=== PATIENT | female | born 1965 | race Caucasian/White ===

== ENCOUNTER 2017-04-30 01:23 | Emergency (ER) | payer OTHER ==
--- NOTE | 2017-04-30 03:15 | PDOC ---
History of Present Illness - General Chief Complaint: Pain, Acute Stated Complaint: ABD PAIN Time Seen by Provider: 04/30/17 03:03 - History of Present Illness Initial Comments: 04/30/17 03:10 52 y.o. female who presents with acute onset of epigastric non-radiating 10/10 cramping abdominal pain with non-bloody diarrhea. Patient states the pain started around 4 p.m. this afternoon while she was sitting at home and was associated with a single episode of non-bloody emesis. Patient denies any dysuria/hematuria and states her LMP was 5 years previous. Patient denies any fevers/chills, chest pain, shortness of breath. NKDA Surgical: abdominoplasty Past History - Past Medical History Allergies/Adverse Reactions: Allergies Allergy/AdvReac Type Severity Reaction Status Date / Time No Known Allergies Allergy Verified 04/30/17 02:46 Home Medications: Ambulatory Orders Buspirone HCl [Buspar -] 10 mg PO TID 09/23/15 Citalopram Hydrobromide [Citalopram HBr] 40 mg PO DAILY 09/23/15 Famotidine 20 mg PO DAILY 09/23/15 Zolpidem Tartrate 10 mg PO HS 09/23/15 Tramadol HCl [Ultram] 50 mg PO TID #21 tablet MDD 3 09/24/15 Polyethylene Glycol 3350 [Miralax (For Daily Use) -] 17 gm PO DAILY #1 bottle Polyethylene Glycol 3350 [Miralax (For Daily Use) -] 17 gm PO DAILY #1 bottle Psychiatric Problems: Yes (Depression) - Surgical History Abdominal Surgery: Yes (Tummy tuck) - Suicide/Smoking/Psychosocial Hx Smoking History: Never smoked Have you smoked in the past 12 months: No Number of Cigarettes Smoked Daily: 0 Information on smoking cessation initiated: No Hx Alcohol Use: No Drug/Substance Use Hx: No Substance Use Type: None Review of Systems - Review of Systems Constitutional: No: Chills, Fever Respiratory: No: Shortness of Breath Cardiac (ROS): No: Chest Pain ABD/GI: Yes: Vomiting, Abdominal cramping. No: Constipated, Diarrhea, Nausea : No: Burning, Dysuria *Physical Exam - Vital Signs Last Vital Signs Temp Pulse Resp BP Pulse Ox 98.3 F 72 20 127/90 99 04/30/17 01:36 04/30/17 01:36 04/30/17 01:36 04/30/17 01:36 04/30/17 01:36 - Physical Exam General Appearance: Yes: Nourished, Appropriately Dressed Neck: positive: Trachea midline, Supple Respiratory/Chest: positive: Lungs Clear Cardiovascular: positive: S1, S2 Gastrointestinal/Abdominal: positive: Normal Bowel Sounds, Tenderness. negative : Distended, Guarding, Hernia, Mass Musculoskeletal: negative: CVA Tenderness (R), CVA Tenderness (L) Extremity: positive: Normal Inspection. negative: Normal Capillary Refill Integumentary: positive: Normal Color, Dry, Warm Neurologic: positive: Fully Oriented, Alert ED Treatment Course - LABORATORY CBC & Chemistry Diagram: 04/30/17 03:34 04/30/17 03:34 Medical Decision Making - Medical Decision Making 04/30/17 03:17 Patient is a 52 y.o. female who presents with epigastric pain and non-bloody diarrhea. Abdomen is mildly tender on PE. Clinical suspicion for viral gastritis vs. biliary tract disease (including cholecystitis) vs. early onset appendicitis vs. diverticular disease. Will obtain CBC, CMP, Lipase + GI cocktail and IV NS and Reassess. Labs wnL. Patient symptomatically improved with GI cocktail. Signs and symptoms likely 2/2 to viral gastroenteritis Will discharge home with return precautions and instruction to f/u with PMD. At time of discharge patient ambulatory, tolerating PO intake and improved. I discussed the physical exam findings, test results and final medical impressions and diagnoses with the patient. I answered all of the patient's questions. The patient was satisfied with the care received and affirmed understanding of the discharge plan and treatment plan. The patient will return to the Emergency Department with any new, persistent or worsening symptoms. *DC/Admit/Observation/Transfer Diagnosis at time of Disposition: Abdominal pain, Viral gastroenteritis - Discharge Dispostion Disposition: HOME Condition at time of disposition: Good Admit: No - Prescriptions Prescriptions: Polyethylene Glycol 3350 [Miralax (For Daily Use) -] 17 gm PO DAILY #1 bottle Polyethylene Glycol 3350 [Miralax (For Daily Use) -] 17 gm PO DAILY #1 bottle - Referrals - Patient Instructions Printed Discharge Instructions: DI for Abdominal Pain-Adult Additional Instructions: Please return to the Emergency Department for any new/worsening/concerning symptoms. - Post Discharge Activity
[2017-04-30 03:19] VITALS: BP 127/90; PULSE 72; TEMP 98.3
[2017-04-30] MEDS ORDERED: SODIUM CHLORIDE 0.9% 1000 ML INFUS.BAG IV ONE (03:22)
[2017-04-30 03:47] LABS: BASO % 0.8 % (0-2.0); EOS % 1.8 % (0-4.5); HEMOGLOBIN 13.8 GM/dL (10.7-15.3); LYMPH % 49.2 % (8-40); MCH 29.3 pg (25.7-33.7); MCHC 32.8 g/dl (32.0-36.0); MEAN CELL VOLUME 89.1 fl (80-96); MEAN PLT VOLUME 8.9 fl (7.5-11.1); NEUT % 42.2 % (42.8-82.8); PLATELET COUNT 251 K/MM3 (134-434); RBC 4.71 M/mm3 (3.60-5.2); WHITE BLOOD COUNT 4.9 K/mm3 (4.0-10.0)
[2017-04-30] MEDS ORDERED: FAMOTIDINE IV 20 MG/12 ML VIAL IVPUSH ONE (03:49)
[2017-04-30] MEDS ORDERED: MAG HYDROX/AL HYDROX/SIMETH 30 ML UNIT-DOSE CUP PO ONE (03:49)
[2017-04-30 04:18] LABS: INR 1.06 (0.82-1.09)
[2017-04-30 04:19] LABS: ALBUMIN 4.2 g/dl (3.4-5.0); ALK PHOS 93 U/L (45-117); ANION GAP 9 (8-16); BILIRUBIN,TOTAL 0.4 mg/dL (0.2-1.0); BLOOD UREA NITROGEN 10 mg/dL (7-18); CHLORIDE 97 mmol/L (98-107); CO2 30 mmol/L (21-32); GLUCOSE,RANDOM 95 mg/dL (74-106); SGPT/ALT 44 U/L (12-78); SODIUM 136 mmol/L (136-145); TOT PROT 8.5 g/dl (6.4-8.2)
[2017-04-30] MEDS ORDERED: MAG HYDROX/AL HYDROX/SIMETH 30 ML UNIT-DOSE CUP ONE (04:19)
[2017-04-30] MEDS ORDERED: FAMOTIDINE 20 MG/50 ML IVPB 20 MG/50 ML MG IVPB ONE (04:20)
[2017-04-30 04:24] LABS: LIPASE 209 U/L (73-393)
--- NOTE | 2017-04-30 05:46 | PDOC ---
Attending Attestation - Resident Resident Name: Irena Carmona - ED Attending Attestation I have performed the following: I have examined & evaluated the patient, The case was reviewed & discussed with the resident, I agree w/resident's findings & plan - HPI HPI: 04/30/17 05:43 Pt comes with abdominal pain and vomiting x 1. Pt has a viral illness. - Physicial Exam PE: 04/30/17 05:44 Normal Exam; after treatment in the ER, pt has minimal gassy pain in her abdomen. Pt has consipation. - Medical Decision Making 04/30/17 05:44 Pt has normal labs and normal exam. She is feeling better in the ER. Pt will be sent home with PMD followup, Pt has the same viral gastroenteritis that everyone in the ER and in this community has. Pt appears well at this time and she is afebrile and she will be discharged.
== END 2017-04-30 05:49 | disposition home or self-care (01) ==
LOC: JER 01:23
PROC: 3E033GC Introduction of Other Therapeutic Substance into Peripheral Vein, Percutaneous Approach (ICD-10-PCS; principal; 2017-04-30)
DX: R10.13 Epigastric pain (principal)
CPT/HCPCS: 36415; 80053; 83690; 85025; 85610; 96374; 99282-25

== ENCOUNTER 2017-12-07 22:35 | Emergency (ER) | payer OTHER ==
[2017-12-07 22:43] VITALS: TEMP 98.9; BMI 25.5
[2017-12-07] MEDS ORDERED: ACETAMINOPHEN 1000 MG/100 ML VIAL (NON FORMULARY) IVPB ONE ×2 (23:26→23:34)
[2017-12-07] MEDS ORDERED: SODIUM CHLORIDE 0.9% 500 ML INFUS.BAG IV ONE (23:26)
[2017-12-07] MEDS ORDERED: ONDANSETRON 4 MG/2 ML VIAL IVPUSH ONE (23:26)
--- NOTE | 2017-12-07 23:30 | PDOC ---
Attending Attestation - HPI HPI: 12/08/17 00:04 The patient is a 52F with a history of migraines and HTN (not on therapy) who presents to the ED with nausea and multiple episodes of vomiting for the past three days after eating seafood. Patient reports she had seafood three days ago and has been experiencing symptoms since. Patient has been unable to tolerate PO intake since the onset of her symptoms. Patient's significant other had the same meal but denies any symptoms. Patient's last bowel movement was at 2PM this afternoon, which was normal with no straining. The patient denies chest pain, shortness of breath, headache, and dizziness. Denies fever, chills, diarrhea, and constipation. Denies dysuria, frequency, urgency, and hematuria. Allergies: NKA Past surgical history: Social history: No reported alcohol, drug, or cigarette use. Documentation prepared by Roshni Snowden, acting as medical legal investigator for Lucy Hong DO. - Physicial Exam PE: 12/08/17 00:07 ADULT PHYSICAL EXAM Constitutional: Awake, alert, oriented. No acute distress. Head: Normocephalic. Atraumatic Eyes: PERRL. EOMI. Conjunctivae are not pale. ENT: Mucous membranes are moist and intact. Posterior pharynx without exudates or erythema. Uvula midline. Neck: Supple. Full ROM. No lymphadenopathy. Cardiovascular: Regular rate. Regular rhythm. S1, S2 regular. Distal pulses are 2+ and symmetric. Pulmonary/Chest: No evidence of respiratory distress. Clear to auscultation bilaterally No wheezing, rales or rhonchi. Abdominal: (+) Mild epigastric tenderness. (+) Old scar. Soft and non- distended. No rebound, guarding or rigidity. No organomegaly. No palpable masses. Good bowel sounds. Back: No CVA tenderness. Musculoskeletal: No edema. No cyanosis. No clubbing. Full range of motion in all extremities. Nocalf tenderness. Radial/pedal pulses are intact and 2+ bilaterally Skin: Skin is warm and dry. No petechiae. No purpura. Neurological: Alert and oriented to person, place, and time. Cranial nerves II -XII are grossly intact. Normal speech. Strength is grossly symmetric. No sensory deficits. Psychiatric: Good eye contact. Normal interaction, affect and behavior. <Isi,Roshni - Last Filed: 12/08/17 00:16> - Resident Resident Name: Armand Stearns - ED Attending Attestation I have performed the following: I have examined & evaluated the patient, The case was reviewed & discussed with the resident, I agree w/resident's findings & plan, Exceptions are as noted - Medical Decision Making 12/07/17 23:30 I, Dr. Lucy Hong, DO, attest that this document has been prepared under my direction and personally reviewed by me in its entirety. I further attest, that it accurately reflects all work, treatment, procedures and medical decision -making performed by me. 12/08/17 00:00 a/p: 52yo female with n/v x 3 days after eating seafood -nonbloody/nonbilious -no diarrhea -last bm today at 2p without straining -unable to tolerate PO intake -will check labs and bedside RUQ ultrasound -suspect gastritis vs enteritis vs pud vs biliary colic -pt is nontoxic in appearance 12/08/17 00:15 bedside ultrasound - negative for pericholecystic fluid or sonographic garcía. no gb wall thickening - could not eval the neck to eval for stone 12/08/17 00:59 official ultrasound negative for acute francis or stones labs stable pt feels better and stable for d/c to home <Lucy Hong - Last Filed: 12/08/17 00:59>
[2017-12-07] MEDS ORDERED: RANITIDINE HCL 150 MG TABLET (FP) PO ONE (23:33)
[2017-12-07] MEDS ORDERED: METOCLOPRAMIDE HCL INJECTION 10 MG/2 ML VIAL IVPUSH ONE (23:34)
[2017-12-07] MEDS ORDERED: METOCLOPRAMIDE HCL INJECTION 10 MG/2 ML VIAL ONE (23:40)
[2017-12-07] MEDS ORDERED: ACETAMINOPHEN INJECTION 100 ML IVPB ONE (23:40)
[2017-12-07 23:49] LABS: URINE APPEARANCE CLOUDY; URINE BILIRUBIN NEGATIVE (<2.0 mg/dL); URINE GLUCOSE (UA) NEGATIVE (NEGATIVE); URINE KETONE NEGATIVE (NEGATIVE); URINE LEUK ESTERASE NEGATIVE (NEGATIVE); URINE NITRITE NEGATIVE (NEGATIVE); URINE UROBILINOGEN NEGATIVE mg/dL (0.2-1.0)
[2017-12-07] MEDS ORDERED: RANITIDINE HCL 150 MG TABLET (FP) ONE (23:49)
[2017-12-07 23:53] LABS: URINE COLOR YELLOW; URINE PROTEIN 1+ (NEGATIVE)
[2017-12-07 23:56] LABS: EPI CELLS RARE /HPF (FEW); HEMATOCRIT 38.5 % (32.4-45.2); HEMOGLOBIN 13.3 GM/dL (10.7-15.3); MCH 29.9 pg (25.7-33.7); MCHC 34.5 g/dl (32.0-36.0); MEAN CELL VOLUME 86.7 fl (80-96); MEAN PLT VOLUME 9.1 fl (7.5-11.1); PLATELET COUNT 239 K/MM3 (134-434); RBC 4.45 M/mm3 (3.60-5.2); RDW 13.2 % (11.6-15.6); URINE HYALINE CAST 4 /lpf; URINE MUCUS RARE; WHITE BLOOD COUNT 4.7 K/mm3 (4.0-10.0)
--- NOTE | 2017-12-07 23:59 | PDOC ---
History of Present Illness - General Chief Complaint: Nausea/Vomiting Stated Complaint: NAUSEA/VOMITING Time Seen by Provider: 12/07/17 23:05 - History of Present Illness Initial Comments: The patient is a 52F with a history of migraines and HTN (not on therapy) who presents w/ 3d of N/V and associated URRUTIA that does not feel similar to her migraines that she has had in the past. She reports eating a meal with shrimp on Monday and shortly thereafter her symptoms began. She reports denies having tried taking anything for the pain. She has since had poor PO tolerance. She denies fevers/chills, vision changes, chest pain, SOB, D/C, or changes in sensation. 12/07/17 23:57 Past History - Past Medical History Allergies/Adverse Reactions: Allergies Allergy/AdvReac Type Severity Reaction Status Date / Time No Known Allergies Allergy Verified 12/07/17 22:43 Home Medications: Ambulatory Orders Buspirone HCl [Buspar -] 10 mg PO TID 09/23/15 Citalopram Hydrobromide [Citalopram HBr] 40 mg PO DAILY 09/23/15 Famotidine 20 mg PO DAILY 09/23/15 Zolpidem Tartrate 10 mg PO HS 09/23/15 Tramadol HCl [Ultram] 50 mg PO TID #21 tablet MDD 3 09/24/15 Polyethylene Glycol 3350 [Miralax (For Daily Use) -] 17 gm PO DAILY #1 bottle Polyethylene Glycol 3350 [Miralax (For Daily Use) -] 17 gm PO DAILY #1 bottle Ranitidine [Zantac -] 150 mg PO DAILY #14 tablet 12/08/17 COPD: No HTN: Yes Psychiatric Problems: Yes (Depression) - Surgical History Abdominal Surgery: Yes ([place]) - Suicide/Smoking/Psychosocial Hx Smoking History: Never smoked Have you smoked in the past 12 months: No Number of Cigarettes Smoked Daily: 0 Information on smoking cessation initiated: No Hx Alcohol Use: No Drug/Substance Use Hx: No Substance Use Type: None Review of Systems - Review of Systems Able to Perform ROS?: Yes Comments:: GENERAL/CONSTITUTIONAL: No fever or chills. No weakness HEAD, EYES, EARS, NOSE AND THROAT: No change in vision. No ear pain or discharge. No sore throat CARDIOVASCULAR: No chest pain or shortness of breath RESPIRATORY: No cough, wheezing, or hemoptysis GASTROINTESTINAL: per HPI GENITOURINARY: No dysuria, frequency, or change in urination MUSCULOSKELETAL: No joint or muscle swelling or pain. No neck or back pain SKIN: No rash NEUROLOGIC: No headache, vertigo, loss of consciousness, or change in strength/ sensation ENDOCRINE: No increased thirst. No abnormal weight change ALLERGIC/IMMUNOLOGIC: No hives or skin allergy 12/08/17 05:10 *Physical Exam - Vital Signs Last Vital Signs Temp Pulse Resp BP Pulse Ox 98.9 F 82 17 114/81 100 12/07/17 22:41 12/07/17 22:41 12/07/17 22:41 12/07/17 22:41 12/07/17 22:41 - Physical Exam Comments: GENERAL: Awake, alert, and fully oriented, in no acute distress HEAD: No signs of trauma, normocephalic, atraumatic EYES: PERRL, EOMI, sclera anicteric, conjunctiva clear ENT: Hearing grossly normal, nares patent, oropharynx clear without exudates. Moist mucosa NECK: Normal ROM, supple, no lymphadenopathy LUNGS: No distress, speaks full sentences, clear to auscultation bilaterally HEART:Regular rate and rhythm, normal S1 and S2, no murmurs appreciated, peripheral pulses normal and equal bilaterally ABDOMEN: Soft, RUQ/epigastric TTP, normoactive bowel sounds. No guarding, no rebound EXTREMITIES : Normal inspection, Normal range of motion, no edema. No clubbing or cyanosis NEUROLOGICAL: Cranial nerves II through XII grossly intact. Normal speech, normal gait, no focal sensorimotor deficits SKIN: Warm, Dry, normal turgor, no rashes or lesions noted 12/08/17 05:11 ED Treatment Course - LABORATORY CBC & Chemistry Diagram: 12/07/17 23:33 12/07/17 23:33 - ADDITIONAL ORDERS Additional order review: Laboratory Results 12/07/17 23:33 Urine Color Yellow Urine Appearance Cloudy Urine pH 8.0 D Ur Specific Rohwer 1.020 Urine Protein 1+ H Urine Glucose (UA) Negative Urine Ketones Negative Urine Blood Negative Urine Nitrite Negative Urine Bilirubin Negative Urine Urobilinogen Negative Ur Leukocyte Esterase Negative Urine WBC (Auto) 12 Urine RBC (Auto) 2 Ur Epithelial Cells Rare Hyaline Casts 4 Urine Mucus Rare 12/07/17 23:33 RBC 4.45 MCV 86.7 MCHC 34.5 RDW 13.2 MPV 9.1 - Medications Given in the ED: ED Medications Discontinued Medications Generic Name Dose Route Start Last Admin Trade Name Arlene PRN Reason Stop Dose Admin Acetaminophen 1,000 mg 12/07/17 23:26 12/07/17 23:48 Ofirmev Injection - IVPB 12/07/17 23:27 Not Given ONCE ONE Acetaminophen 1,000 mg 12/07/17 23:34 12/07/17 23:47 Ofirmev Injection - IVPB 12/07/17 23:35 1,000 mg ONCE ONE Administration Metoclopramide HCl 10 mg 12/07/17 23:34 12/07/17 23:47 Reglan Injection - IVPUSH 12/07/17 23:35 10 mg ONCE ONE Administration Ondansetron HCl 4 mg 12/07/17 23:26 12/07/17 23:48 Zofran Injection IVPUSH 12/07/17 23:27 Not Given ONCE ONE Ranitidine HCl 150 mg 12/07/17 23:33 12/07/17 23:51 Zantac - PO 12/07/17 23:34 150 mg ONCE ONE Administration Sodium Chloride 1,000 ml 12/07/17 23:26 12/07/17 23:47 Normal Saline - IV 12/07/17 23:27 1,000 ml ONCE ONE Administration Medical Decision Making - Medical Decision Making The patient is a 52F with a history of migraines who presents with N/V, RUQ abdominal pain, and URRUTIA for 3d ED Course CMP, CBC, UA/Upreg RUQ US Reglan 10mg IV once Ofirmev 1g IV once 1L NS RUQ US negative for pathology Labs wnl No evidence of UTI Patient symptoms improved Rx for Zantac Plan for DC w/ PCP f/u Pt was asked to return to the ED immediately for any new or concerning or if they worsen. Pt was in agreement, endorsed understanding, and questions were answered. Dispo: Home 12/08/17 05:17 *DC/Admit/Observation/Transfer Diagnosis at time of Disposition: Abdominal pain Qualifiers: Abdominal location: epigastric Qualified Code(s): R10.13 - Epigastric pain Nausea & vomiting Qualifiers: Vomiting type: unspecified Vomiting Intractability: non-intractable Qualified Code(s): R11.2 - Nausea with vomiting, unspecified - Discharge Dispostion Disposition: HOME Condition at time of disposition: Improved Decision to Admit order: No - Prescriptions Prescriptions: Ranitidine [Zantac -] 150 mg PO DAILY #14 tablet - Referrals Referrals: [facility] [place] [Provider Group] - Patient Instructions Printed Discharge Instructions: DI for Nausea -- Adult, DI for Vomiting -- Adult Additional Instructions: You were seen today in the Emergency Department for nausea, vomiting, and headache. Please refer to the handouts provided at discharge. Please fill your prescription that was sent to the pharmacy you specified and take as directed. Please follow up with your primary care provider. Return to the Emergency Department if you develop fevers, worsening symptoms, or new concerning symptoms. - Post Discharge Activity
[2017-12-08 00:09] LABS: ALBUMIN 4.2 g/dl (3.4-5.0); ALK PHOS 85 U/L (45-117); ANION GAP 7 MMOL/L (8-16); BILIRUBIN,TOTAL 0.2 mg/dL (0.2-1.0); BLOOD UREA NITROGEN 11 mg/dL (7-18); CALCIUM 9.1 mg/dL (8.5-10.1); CHLORIDE 102 mmol/L (98-107); CO2 31 mmol/L (21-32); CREATININE 1.1 mg/dL (0.55-1.3); GLUCOSE,RANDOM 106 mg/dL (74-106); POTASSIUM 3.5 mmol/L (3.5-5.1); SGOT/AST 27 U/L (15-37); SGPT/ALT 47 U/L (13-61); SODIUM 140 mmol/L (136-145); TOT PROT 7.7 g/dl (6.4-8.2)
[2017-12-08 00:29] LABS: HCG,QUALITATIVE URINE NEGATIVE
[2017-12-08 01:26] VITALS: BP 110/72; PULSE 76
== END 2017-12-08 01:25 | disposition home or self-care (01) ==
LOC: JER 22:35
PROC: 3E033GC Introduction of Other Therapeutic Substance into Peripheral Vein, Percutaneous Approach (ICD-10-PCS; principal; 2017-12-07)
PROC: 3E033NZ Introduction of Analgesics, Hypnotics, Sedatives into Peripheral Vein, Percutaneous Approach (ICD-10-PCS; 2017-12-07)
DX: R10.13 Epigastric pain (principal); R11.2 Nausea with vomiting, unspecified; I10 Essential (primary) hypertension; G43.909 Migraine, unspecified, not intractable, without status migrainosus
CPT/HCPCS: 36415; 76705-TC; 80053; 81003; 81015; 83690; 84703; 85027; 99284-25; J0131

== ENCOUNTER 2018-01-23 12:47 | Emergency (ER) | payer OTHER ==
[2018-01-23 13:25] VITALS: BP 143/99; PULSE 87; TEMP 98.3; BMI 26.6
--- NOTE | 2018-01-23 13:40 | PDOC ---
History of Present Illness - General Chief Complaint: Eye Problem Stated Complaint: EYE PROBLEM Time Seen by Provider: 01/23/18 13:32 - History of Present Illness Initial Comments: This evaluation done with a scribe used for translation. 52-year-old female without comorbidities presents for evaluation of bilateral eye irritation 2 months she was placed on an oral antihistamine and ocular eyedrop without relief she complains of bilateral eye itching and irritation along with redness and tearing 01/23/18 13:39 Past History - Past Medical History Allergies/Adverse Reactions: Allergies Allergy/AdvReac Type Severity Reaction Status Date / Time No Known Allergies Allergy Verified 01/23/18 13:17 Home Medications: Ambulatory Orders Loratadine 10 mg PO ASDIR 01/23/18 Olopatadine HCl [Pataday] 1 drop OU DAILY #1 bottle 01/23/18 Polymyxin B Sulf/Trimethoprim [Polymyxin B-Tmp Eye Drops] 10 ml OP ASDIR Topiramate 50 mg PO ASDIR 01/23/18 COPD: No HTN: Yes Psychiatric Problems: Yes (Depression) - Surgical History Abdominal Surgery: Yes (Tummy tuck) - Suicide/Smoking/Psychosocial Hx Smoking History: Never smoked Have you smoked in the past 12 months: No Number of Cigarettes Smoked Daily: 0 Hx Alcohol Use: No Drug/Substance Use Hx: No Substance Use Type: None Review of Systems - Review of Systems HEENTM: Yes: See HPI, Tearing All Other Systems: Reviewed and Negative *Physical Exam - Vital Signs Last Vital Signs Temp Pulse Resp BP Pulse Ox 98.3 F 87 18 143/99 99 01/23/18 13:20 01/23/18 13:20 01/23/18 13:20 01/23/18 13:20 01/23/18 13:20 - Physical Exam Comments: 01/23/18 13:40 HEAD: NC/AT EYES: Conjuntiva injected, PERRL, EOMI MS: Full ROM in all joints without edema NEUROLOGIC: No gross sensory or motor deficits, NVID SKIN: Normal color and temperature no lesions or rashes Medical Decision Making - Medical Decision Making 01/23/18 13:41 This is an ALLERGIC conjunctivitis, I will give and antihistamine eyedrop and have her follow-up with ophthalmology *DC/Admit/Observation/Transfer Diagnosis at time of Disposition: Allergic conjunctivitis - Discharge Dispostion Disposition: HOME Condition at time of disposition: Stable Decision to Admit order: No - Referrals Referrals: Leo Lin MD [Primary Care Provider] - Kamala Whitney MD [Staff Physician] - Idris Cleveland MD [Staff Physician] - Shun Solares [Non Staff, Medical] - Allison Sears MD [Non Staff, Medical] - Aidan Murray MD [Staff Physician] - Idris Borrego MD [Non Staff, Medical] - Perez Motley MD, MD [Non Staff, Medical] - Mehran Hopkins MD [Non Staff, Medical] - - Patient Instructions Printed Discharge Instructions: Conjunctivitis, DI for Conjunctivitis Additional Instructions: actual a la laura de emergencias si los sntomas empeoran o no se resuelven. Le he dado olivier lista de las lesiones del mdico ocular local hannah los prximos 1 o 2 dunbar. Por favor, use las gotas para los ojos kristina se indica. Caer en cada jp olivier vez al da current to the emergency room should symptoms worsen or go unresolved. I've given you a list of local eye doctor's lesions follow-up with within the next 1- 2 days. Please use the eyedrops as directed. Drop in each eye once a day Print Language: BULGARIAN - Post Discharge Activity
== END 2018-01-23 13:45 | disposition home or self-care (01) ==
LOC: JER 12:47
DX: H10.13 Acute atopic conjunctivitis, bilateral (principal)
CPT/HCPCS: 99281-25

== ENCOUNTER 2018-02-13 06:41 | Emergency (ER) | payer OTHER ==
[2018-02-13 06:46] VITALS: TEMP 97.8; BMI 25.7
--- NOTE | 2018-02-13 08:12 | PDOC ---
History of Present Illness - General Chief Complaint: Psychiatric Stated Complaint: S.O.B. Time Seen by Provider: 02/13/18 07:28 History Source: Patient Exam Limitations: No Limitations - History of Present Illness Initial Comments: 02/13/18 08:53 52-year-old female with history of hypertension, hyperlipidemia, migraines, anxiety and depression presenting with episode of shortness of breath to 4 hours prior to presentation. She states she was sleeping at the time and then her eye started to blink, associated with breathing rapidly, palpitations, chest tightness, headache, dizziness and muscle tightness in her thighs. episode lasted briefly, since has improved. admits to drinking caffeine daily, including this morning. she took anxiolytic drug and antidepressant (unknown names) with some relief. +stressors including the recent of her grandchild ~earlier this week, where daughter had with some complications. no prolonged immobilization or ocp use. no h/o dVT or PE. no cardiac or CAD/IA history. Past History - Past Medical History Allergies/Adverse Reactions: Allergies Allergy/AdvReac Type Severity Reaction Status Date / Time No Known Allergies Allergy Verified 02/13/18 06:46 Home Medications: Ambulatory Orders Loratadine 10 mg PO ASDIR 01/23/18 Olopatadine HCl [Pataday] 1 drop OU DAILY #1 bottle 01/23/18 Polymyxin B Sulf/Trimethoprim [Polymyxin B-Tmp Eye Drops] 10 ml OP ASDIR Topiramate 50 mg PO ASDIR 01/23/18 COPD: No HTN: Yes Psychiatric Problems: Yes (Depression) - Surgical History Abdominal Surgery: Yes ([place]) - Suicide/Smoking/Psychosocial Hx Smoking History: Never smoked Have you smoked in the past 12 months: No Number of Cigarettes Smoked Daily: 0 Information on smoking cessation initiated: No Hx Alcohol Use: No Drug/Substance Use Hx: No Substance Use Type: None Review of Systems - Review of Systems Able to Perform ROS?: Yes Comments:: 02/13/18 09:04 GENERAL/CONSTITUTIONAL: No fever or chills. No weakness. no sweats. HEAD, EYES, EARS, NOSE AND THROAT: No change in vision or hearing. No ear pain or discharge. No sore throat or mouth pain. No difficulty swallowing. No congestion. +headache and dizziness. CARDIOVASCULAR: No syncope or edema. +chest pain, palpitations RESPIRATORY: No cough, wheezing, or hemoptysis. +SOB GASTROINTESTINAL No nausea/vomiting. No diarrhea MUSCULOSKELETAL: No joint or muscle swelling or pain. No neck or back pain. SKIN: No rash or changes in skin color or lesions. NEUROLOGIC: +headache and dizziness. No vertigo, loss of consciousness, or change in strength/sensation. No gait instability. Psychiatric: +anxious HEMATOLOGIC/LYMPHATIC: No anemia, easy bruising/bleeding, or history of blood clots. ALLERGIC/IMMUNOLOGIC: No allergies All other systems reviewed and negative, or as documented in HPI. *Physical Exam - Vital Signs Last Vital Signs Temp Pulse Resp BP Pulse Ox 97.8 F 89 24 H 134/92 100 02/13/18 06:41 02/13/18 06:41 02/13/18 06:41 02/13/18 06:41 02/13/18 06:41 - Physical Exam Comments: 02/13/18 09:05 General: +anxious, tremulous. awake and alert, NAD. HEENT: NCAT, PERRL, EOMI, clear conjunctiva, anicteric, moist mucus membranes, clear oropharynx, no oral lesions.. Neck: neck supple, FROM Resp: CTAB, normal and even respirations, no respiratory distress CVS: RRR, no murmurs, 2+ peripheral pulses throughout, no peripheral edema Abdomen: soft, NTND, no peritoneal signs. Back: nontender, normal inspection and ROM MSK: no edema, CASTELAN x4, ROM intact. No clubbing or cyanosis. normal bulk and tone. Extrem: no calf tenderness Neuro: alert, oriented appropriately; no focal neurologic deficits Psych: +anxious, tremulous Skin: warm and well perfused, cap refill <2 sec, normal color ED Treatment Course - LABORATORY CBC & Chemistry Diagram: 02/13/18 09:00 02/13/18 09:00 Medical Decision Making - Medical Decision Making 02/13/18 09:05 52 YOF with h/o anxiety, depression, HTN, HLD, presenting with likely anxiety reaction, with body tremors. muscle tightness, dizziness, URRUTIA, SOB and palpitations. no CP. DDx SOB: anemia, electrolyte/metabolic derangements. anxiety reaction. ACS, cardiopulmonary Considered but clinically doubt based on HPI and PE: pulmonary infection, PE, ACS, CHF, pulmonary edema. Vital signs reviewed, wnl. mild tachypnea, off O2, with normal sats, comfortable otherwise. VS repeated, normal Prior notes reviewed, including admissions, discharges and consultations. laboratory results and imaging reviewed, basic labs and lytes wnl, chem normal. troponin_negative, EKG normal sinus rhythm, no interval abnormalities, narrow QRS, ST and T wave segments and morphology normal. Nonspecific T wave abnormalities ED course: given anxiolysis. ECG nonischemic, and no active cp or sob, so unlikely cardiac or pulmonary. improved clinically, ambulatory, eager for discharge. avoid triggers and precipitants. Discharge: Pt to be discharged in stable condition. Patient and family made aware of impression and plan, return precautions discussed (including but not limited to worsening pain or symptoms), fevers, or signs of infection, chest pain, respiratory distress, inability to tolerate oral intake, dehydration, syncope, or neurologic changes). Follow up with PMD as recommended, follow up information provided, take medications as instructed for duration of time. continue with supportive care, avoid triggers and precipitants. All questions answered to patient's satisfaction and expressed understanding and comfort with this. 02/13/18 10:00 *DC/Admit/Observation/Transfer Diagnosis at time of Disposition: Shortness of breath, Anxiety in acute stress reaction - Discharge Dispostion Disposition: HOME Condition at time of disposition: Good Decision to Admit order: No - Referrals Referrals: Leo Lin MD [Primary Care Provider] - - Patient Instructions Printed Discharge Instructions: DI for Anxiety -- Adult, DI for Shortness of Breath Additional Instructions: you were evaluated in the department for your shortness of breath your blood work and enzymes were negative, ECG was also normal, so unlikely arrhythmia or heart attack stay hydrated, rest adequately, minimize stress follow up with your primary doctor please resume your usual medications return if worsening chest pain, shortness of breath, fainting, pain, infection or worsening condition. Usted fue evaluado en el departamento por gallegos falta de aliento. gallegos anlisis de anita y las enzimas fueron negativos, el ECG tambin fue normal , por lo que es poco probable que haya arritmia o ataque cardaco Mantente hidratado, descansa adecuadamente, minimiza el estrs. seguimiento con gallegos mdico de cabecera por favor reanude afshin medicamentos habituales regresar si empeora el dolor de pecho, falta de aliento, desmayos, dolor, infeccin o empeoramiento de la condicin. Print Language: SERBIAN - Post Discharge Activity Forms/Work/School Notes: Back to Work
[2018-02-13] MEDS ORDERED: ALPRAZolam 0.25 MG TABLET PO ONE (08:13)
[2018-02-13] MEDS ORDERED: ALPRAZolam 0.25 MG TABLET ONE (09:02)
[2018-02-13 09:15] LABS: BASO % 0.6 % (0-2.0); EOS % 1.1 % (0-4.5); HEMATOCRIT 36.5 % (32.4-45.2); HEMOGLOBIN 12.5 GM/dL (10.7-15.3); LYMPH % 39.1 % (8-40); MCH 30.4 pg (25.7-33.7); MCHC 34.4 g/dl (32.0-36.0); MEAN CELL VOLUME 88.5 fl (80-96); MEAN PLT VOLUME 8.8 fl (7.5-11.1); MONO % 9.5 % (3.8-10.2); NEUT % 49.7 % (42.8-82.8); PLATELET COUNT 251 K/MM3 (134-434); RBC 4.12 M/mm3 (3.60-5.2); RDW 13.7 % (11.6-15.6); WHITE BLOOD COUNT 3.6 K/mm3 (4.0-10.0)
[2018-02-13 09:57] LABS: ALBUMIN 3.9 g/dl (3.4-5.0); ALK PHOS 103 U/L (45-117); ANION GAP 8 MMOL/L (8-16); BILIRUBIN,TOTAL 0.3 mg/dL (0.2-1); BLOOD UREA NITROGEN 15 mg/dL (7-18); CALCIUM 9.1 mg/dL (8.5-10.1); CHLORIDE 105 mmol/L (98-107); CO2 29 mmol/L (21-32); CREATININE 0.9 mg/dL (0.55-1.3); GLUCOSE,RANDOM 96 mg/dL (74-106); POTASSIUM 4.2 mmol/L (3.5-5.1); SGOT/AST 23 U/L (15-37); SGPT/ALT 43 U/L (13-61); SODIUM 142 mmol/L (136-145); TOT PROT 7.4 g/dl (6.4-8.2)
[2018-02-13 10:04] VITALS: BP 127/76; PULSE 78
--- NOTE | 2018-02-13 11:35 | EKG ---
Test Reason : Blood Pressure : / mmHG Vent. Rate : 071 BPM Atrial Rate : 071 BPM P-R Int : 134 ms QRS Dur : 076 ms QT Int : 410 ms P-R-T Axes : 053 010 041 degrees QTc Int : 445 ms NORMAL SINUS RHYTHM NORMAL ECG NO PREVIOUS ECGS AVAILABLE Confirmed by Evin Montoya MD ([id number]) on 02/13/2018 11:34:36 AM Referred By: Confirmed By:Evin Montoya MD
== END 2018-02-13 10:03 | disposition home or self-care (01) ==
LOC: JER 06:41
DX: F41.1 Generalized anxiety disorder (principal); F43.0 Acute stress reaction; I10 Essential (primary) hypertension; E78.5 Hyperlipidemia, unspecified; F32.9 Major depressive disorder, single episode, unspecified; Z86.69 Personal history of other diseases of the nervous system and sense organs
CPT/HCPCS: 36415; 80053; 84484; 85025; 93005; 93010; 99283-25

== ENCOUNTER → 2018-10-20 | Emergency (ER) | payer OTHER | LOC: JER 21:29 ==

== ENCOUNTER 2020-04-21 09:56 | Emergency (ER) | payer OTHER ==
[2020-04-21 10:12] VITALS: BP 150/89; PULSE 98; TEMP 97.9; BMI 25.8
[2020-04-21] MEDS ORDERED: KETOROLAC TROMETHAMINE 60 MG/2 ML VIAL IM ONE (11:02)
[2020-04-21] MEDS ORDERED: diazePAM 2 MG TABLET PO ONE (11:03)
[2020-04-21] MEDS ORDERED: LIDOCAINE 5% TOPICAL PATCH TP ONE (11:03)
[2020-04-21] MEDS ORDERED: LIDOCAINE 5% TOPICAL PATCH ONE (11:12)
[2020-04-21] MEDS ORDERED: diazePAM 2 MG TABLET ONE (11:13)
[2020-04-21] MEDS ORDERED: KETOROLAC TROMETHAMINE 30 MG/1 ML VIAL ONE (11:13)
== END 2020-04-21 13:14 | disposition home or self-care (01) ==
LOC: JERFT 09:56
PROC: 3E0233Z Introduction of Anti-inflammatory into Muscle, Percutaneous Approach (ICD-10-PCS; principal; 2020-04-21)
DX: M54.2 Cervicalgia (principal)
CPT/HCPCS: 72040-TC; 99284-25

== ENCOUNTER 2020-08-18 19:24 | Emergency (ER) | payer OTHER ==
[2020-08-18 19:32] VITALS: BP 121/81; PULSE 97; TEMP 98.3; BMI 30.7
[2020-08-18 22:04] LABS: BASO % 0.6 % (0-2.0); EOS % 3.1 % (0-4.5); HEMATOCRIT 35.1 % (32.4-45.2); LYMPH % 41.9 % (8-40); MCH 29.9 pg (25.7-33.7); MCHC 34.2 g/dl (32.0-36.0); MEAN CELL VOLUME 87.4 fl (80-96); MEAN PLT VOLUME 8.9 fl (7.5-11.1); MONO % 8.4 % (3.8-10.2); PLATELET COUNT 231 K/MM3 (134-434); RBC 4.02 M/mm3 (3.60-5.2); RDW 13.2 % (11.6-15.6); WHITE BLOOD COUNT 5.5 K/mm3 (4.0-10.0)
[2020-08-18 22:21] LABS: CHLORIDE 104 mmol/L (98-107); SODIUM 142 mmol/L (136-145)
[2020-08-18 22:23] LABS: CALCIUM 8.9 mg/dL (8.5-10.1); GLUCOSE,RANDOM 108 mg/dL (74-106)
[2020-08-18 22:24] LABS: ALBUMIN 3.8 g/dl (3.4-5.0); ANION GAP 7 MMOL/L (8-16); BLOOD UREA NITROGEN 14.3 mg/dL (7-18); CO2 31 mmol/L (21-32)
[2020-08-18 22:26] LABS: CREATININE 1.1 mg/dL (0.55-1.3)
[2020-08-18 22:27] LABS: SGOT/AST 34 U/L (15-37); SGPT/ALT 55 U/L (13-61)
[2020-08-18 22:28] LABS: BILIRUBIN,TOTAL 0.2 mg/dL (0.2-1); TOT PROT 6.8 g/dl (6.4-8.2)
[2020-08-18 22:31] LABS: ALK PHOS 124 U/L (45-117)
[2020-08-18 22:32] LABS: N-TERMINAL BNP 22.4 pg/ml (5-125)
== END 2020-08-19 00:14 | disposition home or self-care (01) ==
LOC: JER 19:24
DX: R06.02 Shortness of breath (principal)
CPT/HCPCS: 36415; 71045-TC-FY; 80053; 83880; 84484; 85025; 93005; 93010; 93970-TC; 99285-25; C9803; U0003; U0005

== ENCOUNTER 2022-03-04 12:15 | Emergency (ER) | payer OTHER ==
[2022-03-04 12:24] VITALS: BP 147/87; PULSE 79; RESP 18; TEMP 97.8; BMI 30.4
[2022-03-04] MEDS ORDERED: DEXAMETHASONE SOD PHOSPHATE 10 MG/1 ML VIAL IM ONE (14:09)
[2022-03-04] MEDS ORDERED: ALBUTEROL SO4 2.5/IPRATROPIUM 0.5 INH SOL 3 ML VIAL.NEB. NEB ONE (14:44)
[2022-03-04] MEDS: ALBUTEROL SO4 2.5/IPRATROPIUM 0.5 INH SOL 3 ML VIAL.NEB. NEB SCH ×2 (14:49→14:50)
== END 2022-03-04 19:00 | disposition home or self-care (01) ==
LOC: JER 12:15 → JERFT 12:15 → JER 19:00
PROC: 3E023GC Introduction of Other Therapeutic Substance into Muscle, Percutaneous Approach (ICD-10-PCS; principal; 2022-03-04)
PROC: 3E0F7GC Introduction of Other Therapeutic Substance into Respiratory Tract, Via Natural or Artificial Opening (ICD-10-PCS; 2022-03-04)
DX: J20.5 Acute bronchitis due to respiratory syncytial virus (principal); J45.901 Unspecified asthma with (acute) exacerbation
CPT/HCPCS: 0241U-QW; 71046-TC-FY; 99284-25; J1100

== ENCOUNTER 2023-02-22 22:20 | Emergency (ER) | payer OTHER ==
[2023-02-22 22:28] VITALS: BP 146/79; PULSE 84; RESP 20; TEMP 98.2; BMI 29.3
[2023-02-22] MEDS ORDERED: FLUORESCEIN NA 1 EA STRIP OD ONE (23:13)
[2023-02-22] MEDS ORDERED: ERYTHROMYCIN 0.5% OPHTHALMIC OINTMENT 3.5 GM TUBE ONE (23:13)
[2023-02-22] MEDS ORDERED: TETRACAINE 0.5% OPHTH SOLN 2 ML BOTTLE OD ONE (23:14)
[2023-02-22] MEDS ORDERED: ERYTHROMYCIN 0.5% OPHTHALMIC OINTMENT 3.5 GM TUBE OD STA (23:30)
[2023-02-23] MEDS ORDERED: ERYTHROMYCIN 0.5% OPHTHALMIC OINTMENT 3.5 GM TUBE OD ONE (23:13)
== END 2023-02-22 23:25 | disposition home or self-care (01) ==
LOC: JERFT 22:20
DX: H10.31 Unspecified acute conjunctivitis, right eye (principal); H57.11 Ocular pain, right eye; H57.89 Other specified disorders of eye and adnexa
CPT/HCPCS: 99283-25